=== PATIENT | female | born 1950 | race Caucasian/White ===

== ENCOUNTER 2016-11-18 08:13 | Inpatient (IN) | payer MEDICAID ==
[2016-11-18] VITALS (11 sets, daily range): BP systolic 89–128; BP diastolic 55–69; PULSE 79–108; RESP 12–18; Ht 157.5 cm; Wt 58.0 kg
[~2016-11-18] VITALS: Ht 157.5 cm; Wt 58.0 kg
[~2016-11-18 08:13] MED LIST: CEFAZOLIN 2 GM/50 ML (PMX) 50 ML IVPB SCH; ROCURONIUM 50 MG INJ ONE; SUCCINYLCHOLINE CHLORIDE 100 MG/5 ML SYG IV ONE
[2016-11-18] MEDS ORDERED: LISI20TA11 PO (09:38)
[2016-11-18] MEDS ORDERED: MULTI PO (09:39)
[2016-11-18] MEDS ORDERED: SIMV10TA PO (09:39)
[2016-11-18] MEDS ORDERED: FAMO20TA18 PO (09:39)
[2016-11-18] MEDS ORDERED: ACET325T45 PO (09:39)
[2016-11-18] MEDS ORDERED: IBUP400T22 PO (09:40)
[2016-11-18] MEDS ORDERED: CALC500T91 PO (09:40)
[2016-11-18] MEDS ORDERED: OMEG300C3 PO (09:42)
[2016-11-18] MEDS ORDERED: GLUC500T11 PO (09:42)
[2016-11-18] MEDS ORDERED: PROPOFOL 20 ML ONE (11:04)
[2016-11-18] MEDS ORDERED: FENTAnyl 50 MCG/ML VIAL ONE ×2 (11:06→12:05)
[2016-11-18] MEDS ORDERED: MIDAZOLAM 1 MG/ML 2 ML INJ ONE (11:06)
[2016-11-18] MEDS ORDERED: LIDOCAINE 1% (MDV) 20 ML INJ ONE (11:06)
[2016-11-18] MEDS ORDERED: FAMOTIDINE 20 MG INJ ONE (11:21)
[2016-11-18] MEDS ORDERED: CEFAZOLIN 1 GM INJ ONE (11:21)
[2016-11-18] MEDS ORDERED: ONDANSETRON 4 MG INJ ONE (11:21)
[2016-11-18] MEDS ORDERED: DEXAMETHASONE 4 MG/ML 1 ML INJ ONE (11:21)
[2016-11-18] MEDS ORDERED: ISOSULFAN BLUE 1% 5 ML INJ SC ONE (11:22)
[2016-11-18] MEDS ORDERED: NEOSTIGMINE 3 MG/3 ML SYRINGE ONE (12:35)
[2016-11-18] MEDS ORDERED: GLYCOPYRROLATE 0.4 MG INJ ONE (12:35)
--- NOTE | 2016-11-18 12:49 | OPR ---
DATE OF OPERATION: 11/18/2016 PREOPERATIVE DIAGNOSIS: Invasive cancer, right breast. POSTOPERATIVE DIAGNOSIS: Invasive cancer, right breast. OPERATION PERFORMED: Right partial mastectomy and axillary dissection utilizing sentinel lymph node technique. ANESTHESIA: General. ANESTHESIOLOGIST: Dr. Luciano SURGEON: Papa Alan MD PIPE FINISHING SUPERVISOR: Shashi Vilchis MD INDICATIONS FOR PROCEDURE: The patient is a 66-year-old female who underwent screening mammography and was found to have a suspicious lesion in the right breast. Additional workup including ultrasou nd and core biopsy revealed invasive cancer. She was counseled as to the risks versus benefits of b reast conservation surgery with right partial mastectomy and axillary dissection utilizing sentinel lymph node technique. She consented and was scheduled for surgery. DESCRIPTION OF PROCEDURE: The patient was brought to the operating theater and placed under general anesthesia. The right breast and axillary region was prepped and draped in the usual sterile fashi on. Approximately 4 mL of 1% Lymphazurin blue dye was then injected peritumorally and the breast wa s gently massaged for approximately 12 minutes. Subsequently, a 4-cm incision was made in the right axillary hairline. The subcutaneous tissue was dissected with cautery down through the clavipector al fascia. A dye-stained lymphatic was identified and traced to a sentinel node. There were additi onal enlarged nodes in this area. Therefore, Dr. Alan made the decision to proceed with level 1 di ssection. With blunt dissection along the chest wall the long thoracic nerve was identified and kep t out of harm's way. More superiorly, the axillary vein and thoracodorsal neurovascular bundle were identified and kept out of harm's way. The sentinel node and additional level 1 axillary nodes wer e then meticulously resected using the LigaSure device. The specimen was removed and sent for intra operative analysis of the sentinel node, which was performed by attending pathologist, Dr. Baudilio delgadillo. There was no definite evidence of metastatic disease. Therefore, the specimen was sent for permanent pathologic analysis and no further nodes were taken. The wound was irrigated. Minimal b leeding was controlled with cautery. The skin was then reapproximated with 4-0 Vicryl suture in sub cuticular fashion. Attention was then directed towards performing a partial mastectomy. A periareolar incision was fro m the 12 o'clock location through the 9 o'clock location to the 6 o'clock location. The subcutaneou s tissue was dissected with cautery. The skin edges were then elevated with skin hooks and wide cir cumferential dissection of the tissue associated with the mass took place, taking great care to ensu re an adequate margin. The specimen was then elevated, transected, oriented, and sent for intraoper ative gross analysis, also performed by Dr. Bowman. Margins were grossly clear. Therefore, the romeo davila was sent for permanent pathologic analysis. The wound was irrigated. Minimal bleeding was controlled with cautery. The skin was then reapproximated with a deep dermal layer of 4-0 Vicryl ndiaye tures in interrupted fashion, followed by final skin approximation with 5-0 PDS suture in subcuticul ar fashion. Dermabond was then applied to both wounds. The patient tolerated the procedure well. Estimated blood loss was 30 mL. There were no complications and the patient was transported in stab le condition to the recovery room, where a circumferential compression dressing was applied. Dictated By: PAPA ESTRADA/PENNY Conf#: [id number] DID#: [id number]
[2016-11-18] MEDS ORDERED: HYDROmorphONE (0.2 MG/ML) 10ML SYG IV PRN (13:00)
[2016-11-18] MEDS ORDERED: DIPHENHYDRAMINE 50 MG INJ IV PRN (13:00)
[2016-11-18] MEDS ORDERED: MEPERIDINE 25 MG INJ IV PRN (13:00)
[2016-11-18] MEDS ORDERED: morphine 2 MG INJ IV PRN (13:00)
[2016-11-18] MEDS ORDERED: PROCHLORPERAZINE 10 MG INJ IV PRN (13:00)
[2016-11-18] MEDS ORDERED: ONDANSETRON 4 MG INJ IV PRN (13:00)
[2016-11-18] MEDS ORDERED: ACETAMINOPHEN 1000MG/100ML IV 100 ML IVPB PRN (13:00)
[2016-11-18] MEDS ORDERED: hydrALAzine 20 MG INJ IV PRN (13:00)
[2016-11-18] MEDS ORDERED: LABETALOL HCL 20MG INJ IV PRN (13:00)
[2016-11-18] MEDS: HYDROmorphONE (0.2 MG/ML) 10ML SYG IV PRN ×2 (13:01→13:50)
[2016-11-18] MEDS: D5W-0.45 NACL + KCL 20 MEQ 1,000 ML IV SCH ×2 (13:36→21:15)
[2016-11-18] MEDS ORDERED: IBUPROFEN 400 MG TAB PO PRN (16:00)
--- NOTE | 2016-11-18 16:27 | HP ---
DATE OF ADMISSION: 11/18/2016 CHIEF COMPLAINT AND HISTORY OF PRESENT ILLNESS: The patient is a 66-year-old female who was found t o have a suspicious lesion in the right breast during screening mammography. Patient subsequently u nderwent ultrasound and core biopsy which revealed invasive cancer. The patient was brought to the hospital today and underwent right partial mastectomy and axillary dissection. The patient postoper atively had significant pain and is being admitted for further evaluation and management. Patient a lso dropped her blood pressure into the high 80s and received IV fluid bolus. The patient does have history of hypertension but due to hypotensive episode, her antihypertensive medication will be wit hheld. Patient denied any abdominal pain, no recent vomiting, headache, dizziness, syncope. REVIEW OF SYSTEMS: The rest of review of systems unremarkable. PAST MEDICAL HISTORY: As stated above. ALLERGIES: NONE. SOCIAL HISTORY: No smoking, no alcohol. FAMILY HISTORY: Noncontributory. PHYSICAL EXAMINATION: GENERAL: The patient is conscious, awake, alert. VITAL SIGNS: Pulse 98, respirations 12 to 14, blood pressure 89/56, O2 saturation 99% on 2 liters nasal cannula. HEENT: No eye discharge or redness. Extraocular movement intact. Oropharynx clear. NECK: Supple. No mass, no thyromegaly. LUNGS: Clear to auscultation. CARDIOVASCULAR: S1, S2 normal. No murmur, gallop, or rub. ABDOMEN: Soft, nondistended, nontender. No palpable mass____. EXTREMITIES: No leg edema. Pedal pulses palpable. SKIN: Without rash or ulcers. NEUROLOGIC: The patient is awake, alert, follows simple commands. LABORATORY DATA: BUN 8, creatinine 0.6, potassium 4.3, sodium 142. WBC 6.4, hemoglobin 13.2, plate lets 320. Coagulations are normal. EKG normal sinus rhythm with no acute ST changes. Chest x-ray: No active cardiopulmonary disease. IMPRESSION: 1. Right breast cancer status post right partial mastectomy. 2. Hypotension. 3. Dyslipidemia. PLAN: Patient admitted on medical floor. Patient will be given IV fluid and will be started on michelle ar liquid diet and advance as tolerated. The patient will be continued on statins and will use SCDs for DVT prophylaxis. The patient will be started on Tylenol, Motrin and IV morphine for pain contr ol. We will continue to follow. Dictated By: CHRISTIANNE VARGAS/PENNY Conf#: [id number] [facility]#: [id number]
[2016-11-18] MEDS: SOD CHLORIDE 0.9% 1,000 ML IV SCH ×2 (19:20→20:00)
[2016-11-18] MEDS ORDERED: ATORVASTATIN 10 MG TAB PO SCH (21:00)
[2016-11-18] MEDS: CALCIUM CARBONATE 1.25 GM TAB PO SCH (21:15)
[2016-11-19] VITALS: BP 101/57; RESP 18
[2016-11-19 04:00] VITALS: BP 117/63; RESP 18
[2016-11-19] MEDS: D5W-0.45 NACL + KCL 20 MEQ 1,000 ML IV SCH ×2 (04:50→12:59)
[2016-11-19 07:41] VITALS: BP 111/58; RESP 19
[2016-11-19] MEDS: CALCIUM CARBONATE 1.25 GM TAB PO SCH (08:47)
[2016-11-19] MEDS ORDERED: MULTIVITAMINS THERAPEUTIC TAB PO SCH (09:00)
[2016-11-19] MEDS ORDERED: FAMOTIDINE 20 MG TAB PO SCH (09:00)
--- NOTE | 2016-11-19 14:07 | PN ---
DATE: 11/19/2016 Status post right partial mastectomy with axillary sampling. SUBJECTIVE: No complaint. OBJECTIVE: VITAL SIGNS: Temperature 98.6, heart rate fluctuating between 101 and 84, respirations 19, blood pr essure 111/58, saturation 97% on room air. CHEST: Dressing is intact. The patient is moving all her right upper extremity easily. There is n o drain. Dressing, the wrap around is not tight. PLAN: The patient's sister is here. We discussed with the patient's sister the need for foll ow with Dr. Alan next week. They are going to call on Tuesday, Dr. Alan' office and make an appoin tment for followup. The patient received a prescription for pain medication. All their questions a nswered. They did not have any requests. Dictated By: BRAULIO NAYLOR MD PS/NTS Conf#: [id number] DID#: [id number]
[2016-11-19] MEDS ORDERED: HYDR-906 PO (17:42)
--- NOTE | 2016-11-26 20:55 | DS ---
Date/Time of Note Date/Time of Note DATE: 11/26/16 TIME: 20:53 Discharge Summary Admission/Discharge Info Admit Date/Time Nov 18, 2016 at 20:27 Discharge Date/Time Nov 19, 2016 at 18:40 Discharge Diagnosis 1. Right breast cancer status post right partial mastectomy. 2. Hypotension. 3. Dyslipidemia. Patient Condition: Good Hx of Present Illness The patient is a 66-year-old female who was found to have a suspicious lesion in the right breast during screening mammography. Patient subsequently underwent ultrasound and core biopsy which revealed invasive cancer. The patient was brought to the hospital today and underwent right partial mastectomy and axillary dissection. The patient postoperatively had significant pain and is being admitted for further evaluation and management. Patient also dropped her blood pressure into the high 80s and received IV fluid bolus. The patient does have history of hypertension but due to hypotensive episode, her antihypertensive medication will be withheld. Patient denied any abdominal pain, no recent vomiting, headache, dizziness, syncope. Hospital Course 1. Right breast cancer status post right partial mastectomy. 2. Hypotension. 3. Dyslipidemia. Home Meds Active Scripts Hydrocodone/Acetaminophen ([place] 5-325 Tablet) 1 Each Tablet, 1 EACH PO Q4, #20 TAB Prov:SUNNI UNDERWOOD 11/19/16 Reported Medications Glucosamine Hcl (Glucosamine Hcl) 500 Mg Tablet, 500 MG PO DAILY, TAB 11/18/16 [employer]-3 Fatty Acids (Fish Oil) 300 Mg Capsule, 300 MG PO DAILY, CAP 11/18/16 Calcium Carbonate (Mxpl-Bko-614) 500 Mg Tablet, 500 MG PO BID, TAB 11/18/16 Simvastatin* (Zocor*) 10 Mg Tablet, 10 MG PO QHS, #30 TAB 11/18/16 Famotidine* (Famotidine*) 20 Mg Tablet, 20 MG PO DAILY, #30 TAB 11/18/16 Acetaminophen* (Acetaminophen*) 325 Mg Tablet, 325 MG PO DAILY Y for PAIN AND OR ELEVATED TEMP, #30 TAB 11/18/16 Multivitamins* (Theragran*) 1 Tab Tab, 1 TAB PO DAILY, TAB 11/18/16 Lisinopril* (Lisinopril*) 20 Mg Tablet, 20 MG PO DAILY, #30 TAB 11/18/16 Discontinued Reported Medications Ibuprofen* (Ibuprofen*) 400 Mg Tablet, 400 MG PO QID Y for PAIN, TAB 11/18/16 Follow-up Plan f/up with Dr Alan in 1 week. Primary Care Provider Not On Staff Doctor SUNNI UNDERWOOD Nov 26, 2016 20:55
== END 2016-11-19 18:40 | disposition home or self-care (01) | DRG 264 ==
LOC: SDS 08:13 → MS2 17:06 → SDS 20:28
PROVIDERS: ADMIT Surgery Surgical Oncology; ATTEND Surgery Surgical Oncology
PROC: 07B50ZX Excision of Right Axillary Lymphatic, Open Approach, Diagnostic (ICD-10-PCS; 2016-11-18)
PROC: 0HBT0ZZ Excision of Right Breast, Open Approach (ICD-10-PCS; principal; 2016-11-18 10:30)
DX: I95.81 Postprocedural hypotension (principal); C50.011 Malignant neoplasm of nipple and areola, right female breast; I10 Essential (primary) hypertension; E78.5 Hyperlipidemia, unspecified; G89.18 Other acute postprocedural pain
CPT/HCPCS: 88307; 88331; J0690; J1100; J1170; J2175; J2250; J2405; J2710; J3010; J3480; J7030; J7999; Q9968